=== PATIENT | female | born 1995 | race Caucasian/White ===

== ENCOUNTER 2017-09-26 19:59 | Emergency (ER) | payer SELFPAY ==
[~2017-09-26] VITALS: Ht 170.2 cm; Wt 83.9 kg
[~2017-09-26 19:59] MED LIST: MAGN300S PO
[2017-09-26 21:02] LABS: BILIRUBIN,URINE SMALL (NEG); GLUCOSE,URINE NEGATIVE (NEG); NITRITE,URINE NEGATIVE (NEG); PROTEIN,URINE 30 mg/dL (NEG-TRACE)
[2017-09-26 21:14] LABS: BACTERIA,URINE FEW /HPF (0-FEW); SQUAMOUS EPITHELIAL CELL,UR MOD /LPF
[2017-09-26 21:16] LABS: BARBITURATES NEG (NEG); BENZODIAZEPINES POS (NEG); CANNABINOIDS POS (NEG); COCAINE NEG (NEG); METHADONE NEG (NEG); OPIATES NEG (NEG); PHENCYCLIDINE NEG (NEG)
--- NOTE | 2017-09-26 21:43 | PHYS DOC ---
Past Medical History Past Medical History: Anxiety, Asthma, Depression, Other Additional Past Medical Histor: hemorrhoids,PCOS, herpes Past Surgical History: Cholecystectomy, Other Alcohol Use: None Drug Use: Marijuana Adult General Chief Complaint Chief Complaint: VAGINAL PROBLEM HPI HPI Patient is a 22 year old female presents to the emergency department stating that she is having white vaginal discharge that she's had for the last month. She states, "I have had multiple partners, I'm a whore." Patient states she has had urinary pain. Patient continues to cry and be upset after talking with the police officers that she states that her car has been stolen. She is afraid of being arrested. She has a history of anxiety and depression. She states she had been on medications however she does not feel that they have done any good. She states that she did try to go back to see her physician but they just want to put her on medications. She denies having a counselor in which she can talk to. States that she would like to be treated for sexual transmitted infections. Patient denies any other pain or complaints at this time. Review of Systems Review of Systems Constitutional: Denies fever or chills [] Eyes: Denies change in visual acuity, redness, or eye pain [] HENT: Denies nasal congestion or sore throat [] Respiratory: Denies cough or shortness of breath [] Cardiovascular: No additional information not addressed in HPI [] GI: Denies abdominal pain, nausea, vomiting, bloody stools or diarrhea [] : dysuria, white vaginal discharge denies hematuria [] Musculoskeletal: Denies back pain or joint pain [] Integument: Denies rash or skin lesions [] Neurologic: Denies headache, focal weakness or sensory changes [] Endocrine: Denies polyuria or polydipsia [] All other systems were reviewed and found to be within normal limits, except as documented in this note. Current Medications Current Medications Current Medications Medications (Trade) Dose Ordered Sig/Yadira Start Time Stop Time Status Last Admin Dose Admin Azithromycin (Zithromax) 1,000 mg 1X ONCE 09/26/17 21:45 09/26/17 21:46 DC 09/26/17 23:07 1,000 MG Ceftriaxone Sodium (Rocephin Im) 250 mg 1X ONCE 09/26/17 21:45 09/26/17 21:46 DC 09/26/17 23:06 250 MG Lidocaine HCl (Xylocaine-Mpf 1% Vial) 2 ml STK-MED ONCE 09/26/17 22:22 09/26/17 22:23 DC Metronidazole (Flagyl) 2,000 mg 1X ONCE 09/26/17 21:45 09/26/17 21:46 DC 09/26/17 23:07 2,000 MG Allergies Allergies Allergies Coded Allergies Type Severity Reaction Last Updated Verified No Known Drug Allergies 05/03/14 No Physical Exam Physical Exam Constitutional: Well developed, well nourished, no acute distress, non-toxic appearance. [] HENT: Normocephalic, atraumatic, bilateral external ears normal, oropharynx moist, no oral exudates, nose normal. [] Eyes: PERRLA, EOMI, conjunctiva normal, no discharge. [] Neck: Normal range of motion, no tenderness, supple, no stridor. [] Cardiovascular:Heart rate regular rhythm, no murmur [] Lungs & Thorax: Bilateral breath sounds clear to auscultation [] Skin: Warm, dry, no erythema, no rash. [] Extremities: No tenderness, no cyanosis, no clubbing, ROM intact, no edema. [] Neurologic: Alert and oriented X 3, normal motor function, normal sensory function, no focal deficits noted. [] Psychologic: Affect normal, judgement normal, mood normal. [] Vaginal exam: Completed with Ely RN at bedside. Patient with bilateral adnexal tenderness as well as CMT. Patient was noted to have thick white discharge in the vaginal vault. Cultures sent. Current Patient Data Vital Signs Vital Signs Date Time Temp Pulse Resp B/P (MAP) Pulse Ox O2 Delivery O2 Flow Rate FiO2 09/26/17 20:00 97.7 83 18 110/62 (78) 98 Room Air 97.7 Lab Values Laboratory Tests Test 09/26/17 20:10 09/26/17 20:13 Urine Collection Type Unknown Urine Color Parul Urine Clarity Clear Urine pH 6.0 Urine Specific [place] >=1.030 Urine Protein 30 mg/dL (NEG-TRACE) Urine Glucose (UA) Negative mg/dL (NEG) Urine Ketones (Stick) 40 mg/dL (NEG) Urine Blood Moderate (NEG) Urine Nitrite Negative (NEG) Urine Bilirubin Small (NEG) Urine Urobilinogen Dipstick 1.0 mg/dL (0.2 mg/dL) Urine Leukocyte Esterase Small (NEG) Urine RBC 6-10 /HPF (0-2) Urine WBC 5-10 /HPF (0-4) Urine Squamous Epithelial Cells Mod /LPF Urine Bacteria Few /HPF (0-FEW) Urine Mucus Marked /LPF Urine Opiates Screen Neg (NEG) Urine Methadone Screen Neg (NEG) Urine Barbiturates Neg (NEG) Urine Phencyclidine Screen Neg (NEG) Urine Amphetamine/Methamphetamine Pos (NEG) Urine Benzodiazepines Screen Pos (NEG) Urine Cocaine Screen Neg (NEG) Urine Cannabinoids Screen Pos (NEG) Urine Ethyl Alcohol Neg (NEG) POC Urine HCG, Qualitative Hcg negative (Negative) Microbiology 09/26/17 Wet Prep - Final, Complete EKG EKG [] Radiology/Procedures Radiology/Procedures [] Course & Med Decision Making Course & Med Decision Making Pertinent Labs and Imaging studies reviewed. (See chart for details) Pelvic exam completed. PAT was called as patient states she needs resources for mental health. Patient denies HI or SI. Wet prep positive for BV, urine positive for leukocytes, Patient will be placed on flagyl and macrobid. Recommended plenty of fluids water and cranberry juice. Recommended that she avoid cranberry juice cocktail, carbonated beverages, citrus fruits, caffeine and alcohol as these are considered irritants to the bladder. Patient will be recommended to followup with mental health as she was provided with resources. I've spoken with the patient and/or caregivers. I've explained the patient's condition, diagnosis and treatment plan based on information available to me at this time. I've answered the patient's and/or caregivers questions and addressed any concerns. The patient and/or caregivers have a good understanding the patient's diagnosis, condition and treatment plan as can be expected at this point. Vital signs have been stabilized. The patient's condition is stable for discharge from the emergency department. The patient will pursue further outpatient evaluation with her primary care provider or other designated consulting physician as outlined in the discharge instructions. Patient and/or caregivers are agreeable to this plan of care and follow-up instructions have been explained in detail. The patient and/or caregivers have received these instructions in written format and expressed understanding of these discharge instructions. The patient and her caregivers are aware that if any significant change in condition or worsening of symptoms should prompt him to immediately return to this of the closest emergency department. If an emergent department is not readily available I would encourage him to call 911. [] Xiao Disclaimer Dragon Disclaimer This electronic medical record was generated, in whole or in part, using a voice recognition dictation system. Departure Departure Impression: Primary Impression: Bacterial vaginosis Additional Impressions: Dysuria Pelvic infection in female Disposition: HOME, SELF-CARE Condition: STABLE Referrals: NO PCP (PCP) Patient Instructions: Bacterial Vaginosis, [id number], Dysuria-Brief, Pelvic Inflammatory Disease, [id number] Additional Instructions: Activity as tolerated Medication as prescribed Drink plenty of fluids such as water and cranberry juice Avoid cranberry juice cocktail, carbonated beverages, citrus fruits, caffeine and alcohol as these are considered irritants to the bladder Avoid sexual intercourse for the next 2 weeks Followup with mental health service in the next 2-3 days Return to emergency department as needed for signs and symptoms that become worse. Scripts Nitrofurantoin Monohyd/M-Cryst (MACROBID 100 MG CAPSULE) 100 Mg Capsule 1 CAP PO BID, #14 CAP Prov: ANKUR WEI APRN 09/26/17 Doxycycline Hyclate (DOXYCYCLINE HYCLATE) 100 Mg Capsule 1 CAP PO BID, #28 CAP Prov: ANKUR WEI APRN 09/26/17 Metronidazole (FLAGYL) 500 Mg Tablet 1 TAB PO BID, #14 TAB Prov: ANKUR WEI APRN 09/26/17 Problem Qualifiers ANKUR WEI APRN Sep 26, 2017 21:43
[2017-09-26] MEDS ORDERED: cefTRIAXone IM 250 MG VIAL IM ONE (21:45)
[2017-09-26] MEDS ORDERED: AZITHROMYCIN 250 MG TABLET. PO ONE (21:45)
[2017-09-26] MEDS ORDERED: metroNIDAZOLE 500 MG TABLET PO ONE (21:45)
[2017-09-26] MEDS ORDERED: LIDOCAINE 1% PF 2 ML VIAL. ONE (22:22)
[2017-09-26 22:47] VITALS: BP 104/56
[2017-09-26] MEDS ORDERED: METR500T PO (23:12)
[2017-09-26] MEDS ORDERED: NITR100C62 PO (23:12)
[2017-09-26] MEDS ORDERED: DOXY100C2 PO (23:12)
== END 2017-09-26 23:20 | disposition home or self-care (01) ==
LOC: ER 19:59
DX: N76.0 Acute vaginitis (principal); B96.89 Other specified bacterial agents as the cause of diseases classified elsewhere; R30.0 Dysuria; N73.9 Female pelvic inflammatory disease, unspecified; E28.2 Polycystic ovarian syndrome; J45.909 Unspecified asthma, uncomplicated; Z90.49 Acquired absence of other specified parts of digestive tract
CPT/HCPCS: 80307; 81001; 81025; 87086; 87491; 87591; 96372; 99284; J0696; Q0111; Q0144; G0479

== ENCOUNTER 2018-04-17 15:58 | Emergency (ER) | payer SELFPAY ==
[2018-04-17] MEDS: IV NORMAL SALINE 1000ML BAG 1,000 ML IV (17:04)
[2018-04-17 17:08] LABS: ADD MAN DIFF? NO
[2018-04-17 17:13] LABS: BASO % 0 % (0-3); EOS # 0.1 x10^3/uL (0.0-0.7); EOS % 1 % (0-3); HEMOGLOBIN 14.5 g/dL (12.0-15.5); LYMPH # 2.2 x10^3/uL (1.0-4.8); LYMPH % 21 % (24-48); MEAN CORPUSCULAR HEMOGLOBIN 30 pg (25-35); MEAN CORPUSCULAR HGB CONC 34 g/dL (31-37); MEAN CORPUSCULAR VOLUME 88 fL (79-100); MONO # 0.8 x10^3/uL (0.0-1.1); MONO % 8 % (0-9); NEUT # 7.2 x10^3uL (1.8-7.7); NEUT % 70 % (31-73); PLATELET COUNT 358 x10^3/uL (140-400); RED CELL DISTRIBUTION WIDTH 14.3 % (11.5-14.5); WHITE BLOOD COUNT 10.3 x10^3/uL (4.0-11.0)
[2018-04-17 17:14] LABS: BILIRUBIN,URINE NEGATIVE (NEG); CLARITY,URINE CLOUDY; COLOR,URINE YELLOW; GLUCOSE,URINE NEGATIVE (NEG); NITRITE,URINE NEGATIVE (NEG); PROTEIN,URINE NEGATIVE (NEG-TRACE)
[2018-04-17 17:18] LABS: ANION GAP 5 (6-14); BLOOD UREA NITROGEN 5 mg/dL (7-20); CARBON DIOXIDE 31 mmol/L (21-32); CHLORIDE 104 mmol/L (98-107); CREATININE 0.7 mg/dL (0.6-1.0); GFR 103.7; GLUCOSE 101 mg/dL (70-99); POTASSIUM 3.3 mmol/L (3.5-5.1); SODIUM 140 mmol/L (136-145)
[2018-04-17 17:31] LABS: AMORPHOUS SEDIMENT,UR PRESENT /HPF; BACTERIA,URINE FEW /HPF (0-FEW); RBC,URINE OCC /HPF (0-2); SQUAMOUS EPITHELIAL CELL,UR FEW /LPF
[2018-04-17 18:31] LABS: NEG OBC UR NEG; POS OBC UR POS; U PREG PATIENT NEGATIVE (NEG)
[2018-04-17] MEDS: KETOROLAC 15 MG/ML VIAL. IV (18:47)
== END 2018-04-17 19:28 | disposition home or self-care (01) ==
LOC: ER 15:58
DX: N39.0 Urinary tract infection, site not specified (principal); E87.6 Hypokalemia; R51 Headache; F41.9 Anxiety disorder, unspecified; J45.909 Unspecified asthma, uncomplicated; F32.9 Major depressive disorder, single episode, unspecified; F17.210 Nicotine dependence, cigarettes, uncomplicated; Z90.49 Acquired absence of other specified parts of digestive tract
CPT/HCPCS: 36415; 80048; 81001; 81025; 85025; 87086; 96361; 96365; 96375; 99284; J0690; J1885; J7030

== ENCOUNTER 2019-09-29 07:01 | Emergency (ER) | payer SELFPAY ==
[~2019-09-29] VITALS: Ht 170.2 cm; Wt 122.5 kg
[~2019-09-29 07:01] MED LIST changes: +CEPH-264 PO; +DOXY100C2 PO; +IBUP200T44 PO; +METR500T PO; +NITR100C62 PO; +POTA10TA12 PO
[2019-09-29] MEDS ORDERED: ONDANSETRON PF 4 MG/2 ML VIAL. IV ONE (07:30)
[2019-09-29] MEDS ORDERED: IV NORMAL SALINE 1000ML BAG 1,000 ML IV ONE (07:30)
[2019-09-29] MEDS ORDERED: fentaNYL PF VIAL 100 MCG/2 ML VIAL IVP ONE (07:30)
--- NOTE | 2019-09-29 07:58 | RAD ---
Examination: KNEE LEFT 3V History: Medial knee pain. Fall injury. Comparison/Correlation: None Findings: Coronal images of the left knee were obtained. Joint spaces are unremarkable. No fracture or bone destruction. No significant knee joint effusion. No significant degenerative change. Impression: No acute process. Electronically signed by: Matias Haile MD (09/29/2019 7:56 AM) [facility]
[2019-09-29 08:09] LABS: BASO # 0.1 x10^3/uL (0.0-0.2); BASO % 1 % (0-3); EOS % 0 % (0-3); HEMATOCRIT 42.8 % (36.0-47.0); HEMOGLOBIN 14.3 g/dL (12.0-15.5); LYMPH # 1.5 x10^3/uL (1.0-4.8); LYMPH % 14 % (24-48); MEAN CORPUSCULAR HEMOGLOBIN 28 pg (25-35); MEAN CORPUSCULAR HGB CONC 33 g/dL (31-37); MEAN CORPUSCULAR VOLUME 83 fL (79-100); MONO # 0.4 x10^3/uL (0.0-1.1); MONO % 3 % (0-9); NEUT # 8.8 x10^3/uL (1.8-7.7); NEUT % 82 % (31-73); PLATELET COUNT 460 x10^3/uL (140-400); RED BLOOD COUNT 5.14 x10^6/uL (3.50-5.40); RED CELL DISTRIBUTION WIDTH 15.3 % (11.5-14.5); WHITE BLOOD COUNT 10.7 x10^3/uL (4.0-11.0)
[2019-09-29 08:10] LABS: CALCIUM 8.8 mg/dL (8.5-10.1); CREATININE 0.8 mg/dL (0.6-1.0); GFR 88.1; POTASSIUM 3.8 mmol/L (3.5-5.1)
[2019-09-29 08:16] LABS: ALBUMIN 3.8 g/dL (3.4-5.0); ALBUMIN/GLOBULIN RATIO 0.9 (1.0-1.7); TOTAL BILIRUBIN 0.1 mg/dL (0.2-1.0); TOTAL PROTEIN 8.2 g/dL (6.4-8.2)
[2019-09-29] MEDS ORDERED: ACET-704 PO (08:31)
--- NOTE | 2019-09-29 08:31 | PHYS DOC ---
Past Medical History Past Medical History: Anxiety, Asthma, Depression, Other Additional Past Medical Histor: hemorrhoids,PCOS, herpes Past Surgical History: Cholecystectomy Alcohol Use: None Drug Use: Marijuana Adult General Chief Complaint Chief Complaint: KNEE INJURY HPI HPI Patient is a 24-year-old female who presents after reportedly falling down stairs and injuring her left knee. Patient points to the medial aspect of the knee where she indicates that pain is worst. She rates the pain at a 10 out of 10. Patient is able to ambulate but states pain is worse with ambulation. She denies any other injuries associated with the fall and states that she did not hit her head and denies neck pain.[] Review of Systems Review of Systems Constitutional: Denies fever or chills [] Respiratory: Denies cough or shortness of breath [] Cardiovascular: No additional information not addressed in HPI [] Musculoskeletal: Positive left knee pain [] Integument: Denies rash or skin lesions [] Neurologic: Denies headache, focal weakness or sensory changes [] All other systems were reviewed and found to be within normal limits, except as documented in this note. Current Medications Current Medications Current Medications Medications (Trade) Dose Ordered Sig/Yadira Start Time Stop Time Status Last Admin Dose Admin Fentanyl Citrate (Fentanyl 2ml Vial) 50 mcg 1X ONCE 09/29/19 07:30 09/29/19 07:31 DC 09/29/19 07:45 50 MCG Ondansetron HCl (Zofran) 4 mg 1X ONCE 09/29/19 07:30 09/29/19 07:31 DC 09/29/19 07:45 4 MG Sodium Chloride 1,000 ml @ 1,000 mls/hr 1X ONCE 09/29/19 07:30 09/29/19 08:29 09/29/19 07:46 1,000 MLS/HR Allergies Allergies Allergies Coded Allergies Type Severity Reaction Last Updated Verified No Known Drug Allergies 05/03/14 No Physical Exam Physical Exam Constitutional: Well developed, well nourished, in mild distress, non-toxic appearance. [] HENT: Normocephalic, atraumatic, bilateral external ears normal, oropharynx moist, no oral exudates, nose normal. [] Eyes: PERRLA, EOMI, conjunctiva normal, no discharge. [] Neck: Normal range of motion, no tenderness, supple, no stridor. [] Cardiovascular: Markedly tachycardic rate with regular rhythm[] Lungs & Thorax: Bilateral breath sounds clear to auscultation [] Abdomen: Bowel sounds normal, soft, no tenderness. [] Skin: Warm, dry, no erythema, no rash. [] Extremities: Examination of left knee demonstrates tenderness to palpation along the medial joint line and over the course of the MCL. Ligamentous testing demonstrated no laxity but significant discomfort was noted on stressing of the MCL. No further ligamentous testing was performed due to patient's reported spenser n. [] Neurologic: Alert and oriented X 3, no focal deficits noted. [] Current Patient Data Vital Signs Vital Signs Date Time Temp Pulse Resp B/P (MAP) Pulse Ox O2 Delivery O2 Flow Rate FiO2 09/29/19 07:10 98.9 148 20 175/84 (114) 98 Room Air 98.9 Lab Values Laboratory Tests Test 09/29/19 07:17 09/29/19 07:45 POC Urine HCG, Qualitative Hcg negative (Negative) White Blood Count 10.7 x10^3/uL (4.0-11.0) Red Blood Count 5.14 x10^6/uL (3.50-5.40) Hemoglobin 14.3 g/dL (12.0-15.5) Hematocrit 42.8 % (36.0-47.0) Mean Corpuscular Volume 83 fL (79-100) Mean Corpuscular Hemoglobin 28 pg (25-35) Mean Corpuscular Hemoglobin Concent 33 g/dL (31-37) Red Cell Distribution Width 15.3 % (11.5-14.5) H Platelet Count 460 x10^3/uL (140-400) H Neutrophils (%) (Auto) 82 % (31-73) H Lymphocytes (%) (Auto) 14 % (24-48) L Monocytes (%) (Auto) 3 % (0-9) Eosinophils (%) (Auto) 0 % (0-3) Basophils (%) (Auto) 1 % (0-3) Neutrophils # (Auto) 8.8 x10^3/uL (1.8-7.7) H Lymphocytes # (Auto) 1.5 x10^3/uL (1.0-4.8) Monocytes # (Auto) 0.4 x10^3/uL (0.0-1.1) Eosinophils # (Auto) 0.0 x10^3/uL (0.0-0.7) Basophils # (Auto) 0.1 x10^3/uL (0.0-0.2) Sodium Level 142 mmol/L (136-145) Potassium Level 3.8 mmol/L (3.5-5.1) Chloride Level 105 mmol/L (98-107) Carbon Dioxide Level 24 mmol/L (21-32) Anion Gap 13 (6-14) Blood Urea Nitrogen 5 mg/dL (7-20) L Creatinine 0.8 mg/dL (0.6-1.0) Estimated GFR (Cockcroft-Gault) 88.1 BUN/Creatinine Ratio 6 (6-20) Glucose Level 129 mg/dL (70-99) H Calcium Level 8.8 mg/dL (8.5-10.1) Total Bilirubin 0.1 mg/dL (0.2-1.0) L Aspartate Amino Transferase (AST) 17 U/L (15-37) Alanine Aminotransferase (ALT) 13 U/L (14-59) L Alkaline Phosphatase 94 U/L (46-116) Total Protein 8.2 g/dL (6.4-8.2) Albumin 3.8 g/dL (3.4-5.0) Albumin/Globulin Ratio 0.9 (1.0-1.7) L Laboratory Tests 09/29/19 07:45 Laboratory Tests 09/29/19 07:45 EKG EKG [] Radiology/Procedures Radiology/Procedures [] Impressions: PROCEDURE: KNEE LEFT 3V Examination: KNEE LEFT 3V History: Medial knee pain. Fall injury. Comparison/Correlation: None Findings: Coronal images of the left knee were obtained. Joint spaces are unremarkable. No fracture or bone destruction. No significant knee joint effusion. No significant degenerative change. Impression: No acute process. Electronically signed by: Matias Haile MD (09/29/2019 7:56 AM) [facility] Course & Med Decision Making Course & Med Decision Making Pertinent Labs and Imaging studies reviewed. (See chart for details) Patient moved to room upon arrival was evaluated by ER medical staff and during evaluation, patient noted to be significantly tachycardic with rate in the 160s. At this point, patient moved to a different ER bed and was placed on gambling monitor. Patient had eventually admitted to nursing staff that she had used some methamphetamine this morning which she feels is likely responsible for her tachycardia. Patient's blood work and x-rays have returned unremarkable. As of 8:30 AM, patient noted to still be tachycardic with a rate of 117. Patient placed in knee immobilizer and provided with crutches and crutch training. Dragon Disclaimer Dragon Disclaimer This electronic medical record was generated, in whole or in part, using a voice recognition dictation system. Departure Departure Impression: Primary Impression: Left knee sprain Disposition: HOME, SELF-CARE Condition: STABLE Referrals: MERARI NIELSEN MD (PCP) Patient Instructions: Knee Sprain Scripts Acetaminophen With Codeine (TYLENOL WITH CODEINE #3 TABLET) 1 Each Tablet 1 TAB PO PRN Q6HRS PRN for PAIN, #12 TAB Prov: VAL RIVERA Jr. DO 09/29/19 Problem Qualifiers Primary Impression: Left knee sprain Encounter type: initial encounter Involved ligament of knee: medial collateral ligament Qualified Codes: S83.412A - Sprain of medial collateral ligament of left knee, initial encounter VAL RIVERA Jr. DO Sep 29, 2019 08:31
[2019-09-29 09:19] VITALS: BP 137/80
--- NOTE | 2019-09-30 06:37 | EKG ---
[facility] [address] [place] [address] Test Date: 2019-09-29 Test Time: 07:29:07 Pat Name: LIAM ABDUL Department: Room: Gender: F Gardener Florist: : 1995 Requested By: VAL RIVERA Order Number: [id number] Reading MD: Jimy Elizalde Measurements Intervals [place] Rate: 142 P: 18 VA: 122 QRS: 10 QRSD: 76 T: 8 QT: 280 QTc: 437 Interpretive Statements SINUS TACHYCARDIA NON SPECIFIC T ABNORMALITY NON SPECIFIC ST DEPRESSION BORDERLINE ECG No previous ECG available for comparison Electronically Signed On 10-01-2019 14:38:08 EXHIBIT DESIGNER by Jimy Elizalde
== END 2019-09-29 09:51 | disposition home or self-care (01) ==
LOC: ER 07:01
DX: S83.412A Sprain of medial collateral ligament of left knee, initial encounter (principal); J45.909 Unspecified asthma, uncomplicated; W10.8XXA Fall (on) (from) other stairs and steps, initial encounter; Y93.89 Activity, other specified; Y92.89 Other specified places as the place of occurrence of the external cause; Y99.8 Other external cause status
CPT/HCPCS: 29505; 36415; 73562; 80053; 81025; 85025; 93005; 96374; 96375; 99285; J2405; J3010; J7030

== ENCOUNTER 2020-03-07 08:58 | Emergency (ER) | payer SELFPAY ==
[~2020-03-07] VITALS: Ht 170.2 cm; Wt 113.0 kg
[~2020-03-07 08:58] MED LIST changes: +ACET-704 PO
[2020-03-07 09:00] VITALS: BP 138/80
[2020-03-07] MEDS ORDERED: NAPR-514 PO (09:14)
--- NOTE | 2020-03-07 09:14 | PHYS DOC ---
Past Medical History Past Medical History: Anxiety, Asthma, Depression, Other Additional Past Medical Histor: hemorrhoids,PCOS, herpes Past Surgical History: Cholecystectomy Smoking Status: Current Every Day Smoker Alcohol Use: None Drug Use: Marijuana General Adult EDM: Chief Complaint: ANKLE PROBLEM HPI: HPI: Patient is a 24-year-old female with a one-month history of ankle pain. She states 1 month ago she fell on it. She left work today because of continued pain. She denies any other injuries. She states there has been some swelling. [] Review of Systems: Review of Systems: Constitutional: Denies fever or chills. [] Eyes: Denies change in visual acuity. [] HENT: Denies nasal congestion or sore throat. [] Respiratory: Denies cough or shortness of breath. [] Cardiovascular: Denies chest pain or edema. [] GI: Denies abdominal pain, nausea, vomiting, bloody stools or diarrhea. [] : Denies dysuria. [] Musculoskeletal: reports left ankle pain [] Integument: Denies rash. [] Neurologic: Denies headache, focal weakness or sensory changes. [] Endocrine: Denies polyuria or polydipsia. [] Lymphatic: Denies swollen glands. [] Psychiatric: Denies depression or anxiety. [] Heart Score: Risk Factors: Risk Factors: DM, Current or recent (<one month) smoker, HTN, HLP, family history of CAD, obesity. Risk Scores: Score 0 - 3: 2.5% MACE over next 6 weeks - Discharge Home Score 4 - 6: 20.3% MACE over next 6 weeks - Admit for Clinical Observation Score 7 - 10: 72.7% MACE over next 6 weeks - Early Invasive Strategies Allergies: Allergies: Allergies Coded Allergies Type Severity Reaction Last Updated Verified No Known Drug Allergies 05/03/14 No Physical Exam: PE: Constitutional: Well developed, well nourished, no acute distress, patient was ambulatory through the [facility] area [] HENT: Normocephalic, atraumatic, bilateral external ears normal, oropharynx moist, no oral exudates, nose normal. [] Eyes: PERRLA, EOMI, conjunctiva normal, no discharge. [] Neck: Normal range of motion, no tenderness, supple, no stridor. [] Cardiovascular:Heart rate regular rhythm, no murmur [] Lungs & Thorax: Bilateral breath sounds clear to auscultation [] Abdomen: Bowel sounds normal, soft, no tenderness, no masses, no pulsatile masses. [] Skin: Warm, dry, no erythema, no rash. [] Back: No tenderness, no CVA tenderness. [] Extremities: Mild left ankle swelling no obvious deformity. [] Neurologic: Alert and oriented X 3, normal motor function, normal sensory function, no focal deficits noted. [] Psychologic: Anxious [] EKG: EKG: [] Radiology/Procedures: Radiology/Procedures: [] Course & Med Decision Making: Course & Med Decision Making Pertinent Labs and Imaging studies reviewed. (See chart for details) [] Dragon Disclaimer: Dragon Disclaimer: This electronic medical record was generated, in whole or in part, using a voice recognition dictation system. Departure Departure Impression: Primary Impression: Left ankle pain Qualified Codes: M25.572 - Pain in left ankle and joints of left foot; G89.29 - Other chronic pain Disposition: 01 HOME, SELF-CARE Condition: STABLE Referrals: MERARI NIELSEN MD (PCP) Patient Instructions: Ankle Exercises (for Rehabilitation), Ankle Pain Scripts Naproxen (NAPROXEN) 500 Mg Tablet 1 TAB PO BID PRN for PAIN, #30 TAB 1 Refill Prov: NAVNEET NAPIER DO 03/07/20 NAVNEET NAPIER DO March 07, 2020 09:14
== END 2020-03-07 09:20 | disposition home or self-care (01) ==
LOC: ER 08:58
DX: M25.572 Pain in left ankle and joints of left foot (principal); G89.29 Other chronic pain; J45.909 Unspecified asthma, uncomplicated; F17.200 Nicotine dependence, unspecified, uncomplicated
CPT/HCPCS: 99284